=== PATIENT | female | born 1970 | race Caucasian/White ===

== ENCOUNTER → 2017-03-23 | Outpatient (CLI) | payer OTHER ==
--- NOTE | ~2017-03-23 | CR229 ---
[facility] RADIOLOGY TEXT RESULTS PATIENT: LAURA CORADO LOCATION: [facility] : 72 UNIT #: [id number] AGE: [address]: Lee Dixon MD SEX: F ORDER DR: [id number] [address] [id number] O MR#: [id number] Acc #: [id number] NAME: LAURA CORADO : 1970 SEX: F STUDY DATE/TIME: 03/23/2017 14:38 UNIT: SRAD ROOM: STUDY DESCRIPTION: CR Shoulder Min 2 View Lt Attending Physician: Lee Dixon M.D. Referring Physician: Lee Dixon M.D. Ordering Physician: Lee Dixon M.D. Primary Care Physician: Lee Dixon M.D. MEDICAL IMAGING REPORT This report is preliminary unless electronic signature is present. EXAM Left shoulder 03/23/2017 INDICATION 46-year-old female with top of shoulder area pain on the left. Symptoms began 2 months ago. No known injury. TECHNIQUE Three views of the left shoulder. Correlation is made with chest x-ray 02/12/2017. FINDINGS No acute fracture, shoulder separation or dislocation. No significant degenerative change. Chronic left-sided rib fractures. IMPRESSION 1. Negative left shoulder. 2. Chronic left-sided rib fractures. Dictated by... Rayray Phillips M.D. THIS IS AN ELECTRONICALLY VERIFIED REPORT Rayray Phillips M.D. at 03/24/2017 5:04 PM ANA/adam TD: 03/24/2017 11:04 JOB #: [id number] MEDICAL IMAGING REPORT [facility] RADIOLOGY TEXT RESULTS PATIENT: LAURA CORADO LOCATION: [facility] : 72 UNIT #: [id number] AGE: [address]: Lee Dixon MD SEX: F ORDER DR: Page 1 of 1
== END | disposition home or self-care (01) ==
LOC: SRAD 14:31
DX: M25.512 Pain in left shoulder (principal)
CPT/HCPCS: 73030